=== PATIENT | male | born 1990 | race African-American/Black ===

== ENCOUNTER 2018-02-02 22:04 | Emergency (ER) | payer SELFPAY ==
[2018-02-02] MEDS ORDERED: Ibuprofen 800 MG TAB ONE (22:33)
--- NOTE | 2018-02-02 22:38 | RAD ---
RADIOGRAPH LEFT FOOT 3 VIEWS: 02/02/18 HISTORY: 27-year-old male with traumatic pain of the forefoot. FINDINGS: There is no fracture, dislocation, periosteal elevation, or destructive osseous lesion. 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 No high grade DJD otherwise. No hallux valgus. Flat-foot . IMPRESSION: 1. Pes planus. 2. Otherwise negative. POS: [facility]
== END 2018-02-02 22:39 ==
LOC: MADERS 22:04
DX: S93.602A Unspecified sprain of left foot, initial encounter (principal); F17.210 Nicotine dependence, cigarettes, uncomplicated; W01.0XXA Fall on same level from slipping, tripping and stumbling without subsequent striking against object, initial encounter

== ENCOUNTER 2019-04-28 15:03 | Emergency (ER) | payer SELFPAY ==
[2019-04-28] MEDS ORDERED: Adacel (T-DAP) 0.5 ML SYRINGE ONE (15:25)
--- NOTE | 2019-04-28 15:36 | RAD ---
EXAM: XR Hand Rt 3 View STANDARD PROVIDED CLINICAL HISTORY: Pain FINDINGS: There is no evidence for acute fracture or other acute osseous abnormality. Alignment appears anatomi c. Joint spaces appear preserved. Remote ununited radial styloid fracture. IMPRESSION: No evidence for an acute osseous abnormality. If there is persistent clinical concern, conservative m anagement and follow-up imaging advised.
== END 2019-04-28 15:49 | disposition home or self-care (01) ==
LOC: EEVIPCON 15:03 → MADERS 15:03
DX: S61.431A Puncture wound without foreign body of right hand, initial encounter (principal); F41.9 Anxiety disorder, unspecified; F32.9 Major depressive disorder, single episode, unspecified; F43.10 Post-traumatic stress disorder, unspecified; F17.210 Nicotine dependence, cigarettes, uncomplicated; Z79.899 Other long term (current) drug therapy; Z23 Encounter for immunization; W45.0XXA Nail entering through skin, initial encounter
CPT/HCPCS: 90471; 90715